=== PATIENT | male | born 1990 | race Caucasian/White ===

== ENCOUNTER 2020-01-11 15:56 | Outpatient (REF) | payer MEDICAID, SELFPAY | END 2020-01-11 15:57 | disposition home or self-care (01) | LOC: HO.LAB 15:56 | PROVIDERS: Visit Provider Internal Medicine | DX: Z20.828 Contact with and (suspected) exposure to other viral communicable diseases (principal) | CPT/HCPCS: C9803; U0003 ==

== ENCOUNTER → 2020-09-06 14:52 | Outpatient (BNVA) | payer MEDICAID, SELFPAY | PROVIDERS: PCP Internal Medicine; Visit Provider Nurse Practitioner Family | DX: G89.29 Other chronic pain (principal); M25.551 Pain in right hip; M25.552 Pain in left hip; R10.9 Unspecified abdominal pain | CPT/HCPCS: 99202 ==

== ENCOUNTER 2020-09-07 09:36 | Outpatient (REF) | payer MEDICAID, SELFPAY | END 2020-09-07 09:37 | disposition home or self-care (01) | LOC: HO.LAB 09:36 | PROVIDERS: Visit Provider Nurse Practitioner Family | DX: Z13.89 Encounter for screening for other disorder (principal) ==

== ENCOUNTER → 2020-09-21 09:12 | Outpatient (BNVA) | payer MEDICAID, SELFPAY | PROVIDERS: Visit Provider Nurse Practitioner Family | DX: R10.9 Unspecified abdominal pain (principal); G89.29 Other chronic pain; M25.551 Pain in right hip; M25.552 Pain in left hip | CPT/HCPCS: 99212 ==

== ENCOUNTER → 2020-10-06 09:45 | Outpatient (BNVA) | payer MEDICAID, SELFPAY | PROVIDERS: PCP Internal Medicine; Visit Provider Anesthesiology | DX: R10.9 Unspecified abdominal pain (principal); G89.29 Other chronic pain; M25.551 Pain in right hip; M25.552 Pain in left hip; Z79.899 Other long term (current) drug therapy | CPT/HCPCS: 99212 ==

== ENCOUNTER → 2022-03-14 13:32 | Outpatient (BNVA) | payer MEDICAID, SELFPAY | PROVIDERS: PCP Internal Medicine; Visit Provider Anesthesiology | DX: M25.551 Pain in right hip (principal); M25.552 Pain in left hip; R10.9 Unspecified abdominal pain; G89.29 Other chronic pain | CPT/HCPCS: 99212 ==